=== PATIENT | female | born 1985 | race African-American/Black ===

== ENCOUNTER 2022-01-18 19:10 | Emergency (ER) | payer MEDICARE ==
[~2022-01-18] VITALS: Ht 160 cm; Wt 59.0 kg
[2022-01-18] MEDS ORDERED: LEVETIRACETAM 1000MG PREMIX 100 ML IV ONE (22:45)
[2022-01-18 23:08] LABS: BASOPHILS % 0.6 % (0.0-2.0); HEMATOCRIT. 33.7 % (36.0-48.0); HEMOGLOBIN. 11.3 g/dL (12.0-16.0); MEAN CORPUSCULAR HEMOGLOBIN 33.9 pg (28.0-32.0); MEAN CORPUSCULAR VOLUME 101.2 fL (81.0-99.0); MONOCYTES % 7.7 % (2.0-8.0); NEUTROPHILS % 77.7 % (40.0-76.0); PLATELET 318 x1000/uL (130-400); RED BLOOD CELL COUNT 3.33 mill/uL (4.2-5.4); RED CELL DISTRIBUTION WIDTH 15.5 % (11.6-14.6)
[2022-01-18 23:18] LABS: CHLORIDE 100 mEq/L (98-107)
[2022-01-18 23:24] LABS: ETHANOL BLOOD < 10 mg/dL
[2022-01-18 23:49] LABS: CLARITY URINE CLOUDY (CLEAR); COLOR URINE YELLOW (YELLOW); KETONES URINE NEGATIVE (NEGATIVE); LEUKOCYTE ESTERASE URINE TRACE (NEGATIVE); NITRITE URINE NEGATIVE (NEGATIVE); OCCULT BLOOD URINE 3+ (NEGATIVE); PROTEIN URINE 2+ (NEGATIVE)
[2022-01-19] MEDS ORDERED: POTASSIUM CHLORIDE 20MEQ/PACKET PO NR
[2022-01-19 00:45] VITALS: BP 103/75
[2022-01-19 00:48] LABS: *AMPHETAMINES SCREEN URINE NEGATIVE (NEGATIVE); *BARBITURATES SCREEN URINE NEGATIVE (NEGATIVE); *BENZODIAZEPINES SCREEN URINE NEGATIVE (NEGATIVE); *COCAINE SCREEN URINE NEGATIVE (NEGATIVE); METHADONE URINE SCREEN NEGATIVE (NEGATIVE); OPIATES URINE SCREEN NEGATIVE (NEGATIVE); PHENCYCLIDINE URINE SCREEN NEGATIVE (NEGATIVE)
[2022-01-19 00:52] LABS: CANNABINOID URINE SCREEN PRESUMTIVE POSITIVE (NEGATIVE)
== END 2022-01-19 00:54 | disposition home or self-care (01) ==
LOC: ER 19:10
DX: R56.9 Unspecified convulsions (principal); E87.6 Hypokalemia; F41.9 Anxiety disorder, unspecified
CPT/HCPCS: 36415; 70450; 80053; 80305; 80320; 81003; 81025; 85025; 96374; 99284; J1953; G0480